=== PATIENT | female | born 1930 ===

== ENCOUNTER → 2017-08-09 | Outpatient (CLI) | payer OTHER | LOC: HYPER 07-12 10:24 | DX: I70.245 Atherosclerosis of native arteries of left leg with ulceration of other part of foot (principal); I87.2 Venous insufficiency (chronic) (peripheral); L97.521 Non-pressure chronic ulcer of other part of left foot limited to breakdown of skin; L97.811 Non-pressure chronic ulcer of other part of right lower leg limited to breakdown of skin; L97.822 Non-pressure chronic ulcer of other part of left lower leg with fat layer exposed; I11.0 Hypertensive heart disease with heart failure; I50.32 Chronic diastolic (congestive) heart failure; M19.90 Unspecified osteoarthritis, unspecified site; Z87.891 Personal history of nicotine dependence ==